=== PATIENT | male | born 1990 | race African-American/Black ===

== ENCOUNTER 2018-05-20 11:25 | Emergency (ER) | payer MEDICAID ==
[~2018-05-20] VITALS: Ht 185.4 cm; Wt 68.0 kg
[2018-05-20 11:27] VITALS: BP 132/92
[2018-05-20 13:42] LABS: CHLORIDE 110 mEq/L (98-107)
[2018-05-20 13:43] LABS: BASOPHILS % 0.1 % (0.0-2.0); HEMATOCRIT. 46.4 % (42.0-52.0); HEMOGLOBIN. 15.6 g/dL (14.0-18.0); LYMPHOCYTES % 13.6 % (20.0-50.0); MEAN CORPUSCULAR HEMOGLOBIN 28.8 pg (28.0-32.0); MEAN CORPUSCULAR VOLUME 85.8 fL (80.0-94.0); MEAN PLATELET VOLUME 10.4 fl (7.4-10.4); MONOCYTES % 4.2 % (2.0-8.0); NEUTROPHILS % 82.1 % (40.0-76.0); PLATELET 144 x1000/uL (130-400); RED BLOOD CELL COUNT 5.41 mill/uL (4.7-6.1); RED CELL DISTRIBUTION WIDTH 14.5 % (11.6-14.6)
[2018-05-20 13:49] LABS: ETHANOL BLOOD < 10 mg/dL
== END 2018-05-20 15:19 | disposition left against medical advice (07) ==
LOC: ER 11:25
DX: R10.30 Lower abdominal pain, unspecified (principal); R11.2 Nausea with vomiting, unspecified; F14.10 Cocaine abuse, uncomplicated; F12.10 Cannabis abuse, uncomplicated; F17.200 Nicotine dependence, unspecified, uncomplicated
CPT/HCPCS: 36415; 80053; 80307; 80329; 83690; 85025; 99284; G0482